=== PATIENT | female | born 1965 | race Caucasian/White ===

== ENCOUNTER 2017-03-10 12:58 | Inpatient (IN) ==
--- NOTE | 2017-03-09 17:35 | Discharge Summary ---
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 Qualifiers: Encounter type: subsequent encounter Qualified Code(s): T84.038D - Mechanical loosening of other internal prosthetic joint, subsequent encounter; Z96.619 - Presence of unspecified artificial shoulder joint; Z96.619 - Presence of unspecified artificial shoulder joint (2) Hypothyroidism Priority: Secondary Status: Chronic Qualifiers: Hypothyroidism type: unspecified Qualified Code(s): E03.9 - Hypothyroidism , unspecified (3) GERD (gastroesophageal reflux disease) Priority: Secondary Status: Chronic Qualifiers: Esophagitis presence: esophagitis presence not specified Qualified Code(s) : K21.9 - Gastro-esophageal reflux disease without esophagitis (4) Depression Priority: Secondary Status: Chronic Qualifiers: Depression Type: unspecified Qualified Code(s): F32.9 - Major depressive disorder, single episode, unspecified (5) HTN (hypertension) Priority: Secondary Status: Chronic Qualifiers: Hypertension type: unspecified Qualified Code(s): I10 - Essential (primary ) hypertension - Discharge Medications Home Medications: OxyCODONE Immed Rel [Roxicodone 5 MG] 5 - 10 mg PO Q6HR PRN #40 tablet 02/25/16 [Rx] Ascorbate Calcium [Vitamin C] 500 mg PO DAILY 02/26/16 [History] Aspirin 81 mg PO HS 02/26/16 [History] Citalopram Hydrobromide [Celexa] 40 mg PO HS 02/26/16 [History] Cranberry 500 mg PO DAILY 02/26/16 [History] Cyanocobalamin (Vitamin B-12) [Vitamin B-12] 1,000 mcg SL DAILY 02/26/16 [ History] Cyclobenzaprine HCl 5 mg PO TID PRN 02/26/16 [History] Esomeprazole Magnesium [Nexium] 40 mg PO DAILY 02/26/16 [History] Garlic [Odor Free Garlic] 100 mg PO DAILY 02/26/16 [History] Levothyroxine Sodium [Levo-T] 100 mcg PO HS 02/26/16 [History] Meloxicam [Mobic] 7.5 mg PO DAILY 02/26/16 [History] Multivitamin [Zoo Chews] 1 each PO DAILY 02/26/16 [History] [place]-3/Dha/Epa/Fish Oil [[place] 3 500 Softgel] 1 each PO DAILY 02/26/16 [History ] Vitamins A and D [Vitamin A and D] 1 each PO DAILY 02/26/16 [History] Zinc [Zinc Chelated] 50 mg PO DAILY 02/26/16 [History] OxyCODONE Immed Rel [Roxicodone 5 MG] 5 mg PO Q6HR PRN 7 Days #28 tablet [Rx] Calcium Carbonate [Calcium] 600 mg PO DAILY 03/10/17 [History] Lisinopril [Zestril] 5 mg PO DAILY 03/10/17 [History] Ubidecarenone [Co Q-10] 100 mg PO DAILY 03/10/17 [History] Allergies/Adverse Reactions: 3 Allergy/AdvReac Type Severity Reaction Status Date / Time cephalexin [From Keflex] Allergy SAMY PURCELL Verified 03/10/17 13:55 ING Primary care physician: PCP NONE - Patient Status Disposition: Home, Self-Care Condition: Good - Discharge Instructions Follow Up With: Yesica Olsen PAC [Physician Subacute Nurse] - 03/20/17 9:00 am Yves Perez MD [Partnered Physician] - 04/08/17 10:05 am Additional Instructions: Discharge Instructions: Total Shoulder Please call [facility] ([phone]), your Primary Care Physician, or report to the Emergency Room if you have any of the following symptoms: Nausea, vomiting, fever greater that 101.5, swelling, chest pain, shortness of breath, increased pain/redness/drainage/odor for your incision site, numbness/ tingling, or any other concerning symptoms. ACTIVITY: Always keep your arm in the sling. Do not raise your arm away from your body. Do not use your arm to help with getting in or out of bed. No weight bearing permitted. Only perform those exercises given to you by your therapist. MEDICATIONS: Upon discharge resume your home medications. Take all the medications as prescribed. Take a stool softener if taking narcotic pain medications. Stool softeners are only effective if you drink enough fluids. Drink 6-8 glass of water or fluids a day, unless this is not allowed for another health problem. Despite using stool softeners, if you haven't had a bowel movement in 3 days, please switch to a gentle laxative. Gentle laxatives are sold over the counter. You should have a bowel movement within 24 hours, if not call the office. You will be discharged from the hospital with a prescription for pain medication. You are encouraged to decrease the use of narcotic pain medication as tolerated. Should you require a refill, please call the office. [facility] prescribes narcotic pain medication for only 4-6 weeks after surgery. If you require pain medication beyond this time period, you may be referred to your Primary Care Physician or to the Pain Clinic for further evaluation. Plan ahead for refills on pain medication as many narcotics either need to be picked up at the office or mailed. It is best to call 48-72 hours in advance of needing a prescription refill so you don't run out of medication. To help control the post-operative pain, you may take NSAIDs (Aleve,Advil, Motrin, Ibuprofen, Naprosyn) or Tylenol as prescribed on the bottle in addition to the pain medication. WOUND CARE: Leave the dressing on for 7-10 days. You may change the dressing if it becomes saturated greater than 50%. Do not get the dressing wet at anytime. Wash your hands with antibacterial soap, rinse and dry prior to any wound care. If you have alisa the visiting nurse or rehab facility can remove the stapes 10-14 days after surgery and place steri-strips across the wound. Leave the steri-strips in place until they fall off on their own. You may let water from the shower run on top of the steri-strips. If you do not have a visiting nurse or rehab facility, you will need to return to the office at 10-14 days for the alisa to be removed. If you have itching or redness around the dressing call the office. FOLLOW-UP: Please follow up with your surgeon in the orthopedic clinic, as scheduled - Hospital Course Hospital course: Ms. 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 Qualifiers: Encounter type: subsequent encounter Qualified Code(s): T84.038D - Mechanical loosening of other internal prosthetic joint, subsequent encounter; Z96.619 - Presence of unspecified artificial shoulder joint; Z96.619 - Presence of unspecified artificial shoulder joint (5) Hypothyroidism Priority: Secondary Status: Chronic Qualifiers: Hypothyroidism type: unspecified Qualified Code(s): E03.9 - Hypothyroidism , unspecified (6) GERD (gastroesophageal reflux disease) Priority: Secondary Status: Chronic Qualifiers: Esophagitis presence: esophagitis presence not specified Qualified Code(s) : K21.9 - Gastro-esophageal reflux disease without esophagitis (7) Depression Priority: Secondary Status: Chronic Qualifiers: Depression Type: unspecified Qualified Code(s): F32.9 - Major depressive disorder, single episode, unspecified Primary care physician: PCP NONE - Patient Status Functional capacity at discharge: independent ambulation Overall status at discharge: patient is progressing back to baseline - Hospital Course Hospital course: Ms. Bear is a 51 year old female Status post revision right total shoulder patient discharged same day - Time Spent with Patient Total time spent providing and/or coordinating discharge services:
--- NOTE | 2017-03-10 13:14 | History & Physical Report ---
Date of Encounter: 03/10/17 Time of Encounter: 13:14 24 Hour HP Update - Instructions Instructions: If the History and Physical is less than 30 days old and was completed prior to A.M. admission and or procedure and has NOT been updated on calendar day of procedure please complete this update prior to performing procedure. - Update Patient reports changes in Medical Condition: No Changes in examination, assessment, or condition: No Changes in Medication: No Preop tests/diagnostics Reviewed: Yes Surgery Remains Indicated: Yes Consent for Planned Operative Procedure(s) Verified: Yes - Pre-Operative Checklist Preoperative Checklist Indicated: No Prophylactic Antibiotic Ordered: Yes Is VTE Prophylaxis Indicated?: Yes
[2017-03-10] MEDS ORDERED: Lidocaine -MPF 1% 2 ML VIAL ID ONE (13:20)
[2017-03-10] MEDS ORDERED: Clindamycin 900 MG/50 ML 900 MG/50 ML IV.SOLN IVPB ONE (13:20)
[2017-03-10] MEDS ORDERED: Ringers Solution, Lactated 1,000 ML IVC SCH ×2 (13:30→17:15)
--- NOTE | 2017-03-10 14:08 | Anesthesia Evaluation PreOp ---
Date of Encounter: 03/10/17 Time of Encounter: 14:00 - Past History Planned Operation: Revision Rt Shoulder Cardiac History: HTN, Hyperlipidemia Pulmonary History: Denies Any Significant HX WASH DRILLER History: Denies Any Significant HX Other Medical History: Thyroid Anesthesia History: No Prior Anesthetic Complications : No Alcohol Use: none Drug use: none Medications and Allergies OxyCODONE Immed Rel [Roxicodone 5 MG] 5 - 10 mg PO Q6HR PRN #40 tablet 02/25/16 [Rx] Ascorbate Calcium [Vitamin C] 500 mg PO DAILY 02/26/16 [History] Aspirin 81 mg PO HS 02/26/16 [History] Citalopram Hydrobromide [Celexa] 40 mg PO HS 02/26/16 [History] Cranberry 500 mg PO DAILY 02/26/16 [History] Cyanocobalamin (Vitamin B-12) [Vitamin B-12] 1,000 mcg SL DAILY 02/26/16 [ History] Cyclobenzaprine HCl 5 mg PO TID PRN 02/26/16 [History] Esomeprazole Magnesium [Nexium] 40 mg PO DAILY 02/26/16 [History] Garlic [Odor Free Garlic] 100 mg PO DAILY 02/26/16 [History] Levothyroxine Sodium [Levo-T] 100 mcg PO HS 02/26/16 [History] Meloxicam [Mobic] 7.5 mg PO DAILY 02/26/16 [History] Multivitamin [Zoo Chews] 1 each PO DAILY 02/26/16 [History] [place]-3/Dha/Epa/Fish Oil [[place] 3 500 Softgel] 1 each PO DAILY 02/26/16 [History ] Vitamins A and D [Vitamin A and D] 1 each PO DAILY 02/26/16 [History] Zinc [Zinc Chelated] 50 mg PO DAILY 02/26/16 [History] OxyCODONE Immed Rel [Roxicodone 5 MG] 5 mg PO Q6HR PRN 7 Days #28 tablet [Rx] Calcium Carbonate [Calcium] 600 mg PO DAILY 03/10/17 [History] Lisinopril [Zestril] 5 mg PO DAILY 03/10/17 [History] Ubidecarenone [Co Q-10] 100 mg PO DAILY 03/10/17 [History] 3 Allergy/AdvReac Type Severity Reaction Status Date / Time cephalexin [From Keflex] Allergy SAMY PURCELL Verified 03/10/17 13:55 ING - Meds/Allergy Pre-op Review Medications Reviewed: Yes Allergies Reviewed: Yes Beta Blockers on Current Med List: No Anesthesia Results - Labs Laboratory Tests 02/25/17 02/25/17 16:08 16:08 Hgb 13.1 Hct 40.2 Plt Count 309 Sodium 137 Potassium 4.1 BUN 15 Creatinine 0.75 - Imaging EKG: report reviewed (SR) Anesthesia Exam O2 Sat Height 1.68 m Height 1.68 m Height 1.68 m Weight 97.976 kg Weight 97.976 kg Weight 97.976 kg O2 Sat by Pulse Oximetry 96 O2 Sat by Pulse Oximetry 96 Vital Signs Temp Pulse Resp BP Pulse Ox 98.0 F 80 18 129/83 96 03/10/17 13:17 03/10/17 13:17 03/10/17 13:17 03/10/17 13:17 03/10/17 13:17 Height: 5'6 Weight: 216 lbs NPO (# of Hours): MN Pain Scale: 0 - HEENT Pupil (Motor): Pupils equal, EOMI Mallampati: III Teeth: Edentulous Oral Opening: Less than or equal to 3 - WASH DRILLER LOC: Oriented WASH DRILLER Motor: Normal RUE, Normal LUE, Normal RLE, Normal LLE, Normal Face WASH DRILLER Sensory: Normal: RUE, LUE, RLE, LLE, Face - Cardiac Rhythm: Regular Murmur: None JVD: No Carotid Bruit: No - Pulmonary Breath Sounds: bilateral Clear Respiratory Effort: Symmetrical Anesthesia Assess/Plan ASA Score: 2 Modified Hilaria Scale for Level of Consciousness: Cooperative, oriented, and tranquil Anesthetic Plan: General, Regional Monitoring Plan: Standard Monitors Recovery Plan: PACU (Discussed GA and RA, agrees to proceed)
[2017-03-10] MEDS ORDERED: ROPIVACAINE HCL/PF 0.5% 30 ML VIAL ONE (14:41)
[2017-03-10] MEDS ORDERED: Tetracaine/PF 20 MG/2 ML AMPUL ONE (14:42)
[2017-03-10] MEDS ORDERED: Ethanol\\Acetic Acid\\Na Ace\\Ben 1,000 ML IRRIG.SOLN IR ONE (14:56)
--- NOTE | 2017-03-10 15:01 | Anesthesia Procedures ---
Date of Encounter: 03/10/17 Time of Encounter: 14:00 Procedures: Anesthesia - Nerve Block Procedure Date: 03/10/17 Time: 14:50 Pre-op Diagnosis: Rt Shoulder Arthritis Surgical Procedure: Rt Total Shoulder Replacement Checklist: Correct Patient Identifier Correct side: Right Blood Thinner: No Monitor Applied: EKG, BP, Pulse Oximetry Supplemental Oxygen via Nasal Cannula (L/min): 2 Sedation: Versed (mg): 2 Sedation: Fentanyl (mcg): 50 Indication: Post Op Analgesia Pre-op Neuro Deficits: No Block Type: Supraclavicular Catheter placed: No Depth at skin (cm): 2 Sterile Technique: Yes Ultrasound used: Yes Anatomy identified: Yes Visual spread of Local: Yes Neuro Stimulation: No Blood on Needle Aspiration: No Smooth Injection of Local: Yes Prep: Chlorhexadine Needle: 22 x 50 mm Stimuplex Local: Tetracaine, Ropivacaine Volume (cc): 30 Number of Attempts: 1 Complications: None/effective block Vitals: Vital Signs/O2 Sat/Glucose, Most Current Temp Pulse Resp BP Pulse Ox 03/10/17 14:54 74 14 126/74 99 03/10/17 14:31 67 16 126/69 99 03/10/17 13:23 98.0 F 80 18 129/83 96 03/10/17 13:17 98.0 F 80 18 129/83 96
[2017-03-10] MEDS ORDERED: *HR* Propofol 200 MG/20 ML VIAL IVP ONE ×2 (15:32→16:12)
[2017-03-10] MEDS ORDERED: *HR* FentaNYL (PF) 100 MCG/2 ML VIAL ONE (15:32)
[2017-03-10] MEDS ORDERED: *HR* Midazolam HCl 2 MG/2 ML VIAL ONE (15:32)
[2017-03-10] MEDS ORDERED: Lidocaine -MPF 2% 2 ML VIAL ONE (15:32)
[2017-03-10] MEDS ORDERED: EPHEDrine 50 MG/ML VIAL ONE (15:32)
[2017-03-10] MEDS ORDERED: Ondansetron 4 MG/2 ML VIAL IVP PRN ×2 (15:38→17:15)
[2017-03-10] MEDS ORDERED: *HR* Labetalol 20 MG/4 ML SYRINGE IVP PRN (15:38)
[2017-03-10] MEDS ORDERED: *HR* HYDROmorphone (PF) 1 MG/ML SYRINGE IVP PRN ×2 (15:38→17:15)
[2017-03-10] MEDS ORDERED: Dexamethasone 4 MG/ML VIAL ONE (15:43)
--- NOTE | 2017-03-10 16:09 | Orthopedic Operative Note ---
Date of procedure: 03/10/17 Pre-op diagnosis: Aseptic loosening right total shoulder reverse replacement Post-op diagnosis: same Procedure: Procedure: Right Revision Total Shoulder replacement reverse Estimated blood loss: 200 cc Hardware: Arthrex metal and plastic replacement: Glenoid component: Medium, 2 4.5 screws, one 6.5 screw, 39+4 sphere, 6 stem, 9 spacer, 3 Mary Procedural Notes: Loose glenoid with fractured screws 2, loose humeral component Operative procedure: The patient was brought to the operating room and placed on the operating room table. The patient was placed in the modified beachchair position. All pressure points were padded appropriately. And the head was stabilized in the neutral position. The operative extremity was prepped and draped in the sterile surgical fashion. The patient received IV antibiotics prior to skin incision. A standard deltopectoral approach was made to the operative shoulder. Incision was made through the old incision, through the skin and subcutaneous tissue, hemo stasis was obtained with Bovie cautery. Using careful blunt dissection the deltopectoral interval was developed and the clavipectoral fascia was incised. An extensive debridement was performed, and the shoulder was dislocated. Using an osteotome to clear out the soft tissue, the humeral component was disassembled leaving the diaphyseal component. Anterior and posterior Bankart retractors were used to expose the glenoid, the glenoid component was removed without incident. First the glenosphere was disengaged, and the screws removed from the baseplate, and finally the baseplate was removed without significant bone loss. No attempt was made to remove the broken screws for fear of losing more bone. The glenoid guide was seated the centering hole was made the glenoid was reamed with the appropriate medium reamer. The glenoid baseplate was seated and secured and locked in place with the compression screws. This was placed over 2 mL of DBX bone stimulating protein placed in the central holes. 2 4.5 compression screws 1 25 millimeter 6.5 central screw The baseplate was irrigated and dried the 39+4 glenosphere was seated and secured. Attention was then turned to the humeral side. The diaphyseal component was removed from the humerus without incident. The humerus was reamed and broached up to a 6 size in 20 degrees of retroversion. Trial reduction found the shoulder to be relocatable. Trial components were removed, real implants were seated. Trial reduction found the shoulder to be stable with the 9 spacer and 3 poly- constrained. The trial implants were removed the real implants were seated and secured in the shoulder was reduced. The patient had excellent motion and excellent stability no shuck. The deep tissue was irrigated with pulse irrigation deltopectoral interval was closed by the PA, with #2 PDS suture over Gelfoam soaked in vancomycin. Superficially the subcutaneous tissue was closed with 0 PDS suture, the skin was closed with Dermabond. The patient placed sterile dressing, postoperative brace extubated and transferred to the recovery room in stable condition. Anesthesia: GETErika Surgeon: Yves Perez Board Lining Machine Operator: Yesica Olsen Condition: stable Disposition: PACU
--- NOTE | 2017-03-10 16:56 | Anesthesia Evaluation Post Op ---
Date of Encounter: 03/10/17 Time of Encounter: 16:56 - Vital Signs Vital Signs: Vital Signs - Last 8 Hours Temp Pulse Resp BP Pulse Ox 03/10/17 16:50 76 12 128/69 95 03/10/17 16:40 81 14 117/79 98 03/10/17 16:30 97.9 F 82 14 115/86 99 03/10/17 14:54 74 14 126/74 99 03/10/17 14:31 67 16 126/69 99 03/10/17 13:23 98.0 F 80 18 129/83 96 03/10/17 13:17 98.0 F 80 18 129/83 96 Intake and Output 03/10/17 03/10/17 03/10/17 07:59 15:59 23:59 Output Total 200 / 200 Balance -200 / -200 Output: Urine 0 / 0 Estimated Blood Loss 200 / 200 Other: Weight 97.976 kg Patient Weight 03/10/17 23:59 Weight 97.976 kg - Lungs Lungs: Clear Ascult./Percussion - Airway Airway: Non-obstructed - Cardiovascular Regular Rate, Baseline Rhythm - Mental Status Mental Status: Alert & Oriented, Answers Appropriately - Pain Pain Scale: 0 Pain Scale used: Numeric (1 - 10) - Nausea Vomiting Nausea Vomiting: Not Present - Hydration Hydration: Ice chips - Discharge PostOp Status: Transfer Patient to floor
[2017-03-10 16:59] LABS: Hematocrit 39.3 % (35.3-44.9); Hemoglobin 12.9 g/dL (11.5-15.4)
[2017-03-10] MEDS ORDERED: Clindamycin 900 MG/50 ML 900 MG/50 ML IV.SOLN IVPB SCH (17:15)
[2017-03-10] MEDS ORDERED: Temazepam 15 MG CAPSULE PO PRN (17:15)
[2017-03-10] MEDS ORDERED: MOM Conc 10 ML UD.LIQ PO PRN (17:15)
[2017-03-10] MEDS ORDERED: *HR* OxyCODONE Immed Rel 5 MG TABLET PO PRN ×2 (17:15)
[2017-03-10] MEDS ORDERED: Naloxone 0.4 MG/ML INJ IVP PRN (17:15)
[2017-03-10] MEDS ORDERED: Sennosides 8.6 MG TABLET PO PRN (17:15)
[2017-03-10] MEDS ORDERED: *HR* Enoxaparin 30 MG/0.3 ML SYRINGE SQ SCH ×2 (18:00)
[2017-03-10 18:29] VITALS: BP 108/75
[2017-03-10] MEDS ORDERED: Aspirin 81 MG TAB.CHEW PO SCH (21:00)
[2017-03-11] MEDS ORDERED: Multivit/Ca/Min/Fe/FA 1 TAB TABLET PO SCH (09:00)
[2017-03-11] MEDS ORDERED: DHA PO SCH (09:00)
[2017-03-11] MEDS ORDERED: [UNRECOGNIZED DRUG - REMARK] PO SCH (09:00)
[2017-03-11] MEDS ORDERED: (Ubidecarenone [Co Q-10] 100 MG) PO SCH (09:00)
[2017-03-11] MEDS ORDERED: OMEGA PO SCH (09:00)
[2017-03-11] MEDS ORDERED: EPA PO SCH (09:00)
[2017-03-11] MEDS ORDERED: (Zinc [Zinc Chelated] 50 MG) PO SCH (09:00)
[2017-03-11] MEDS ORDERED: Cyanocobalamin (B-12) 1,000 MCG TABLET PO SCH (09:00)
[2017-03-11] MEDS ORDERED: FISH OIL PO SCH (09:00)
[2017-03-11] MEDS ORDERED: Ascorbic Acid 500 MG TABLET PO SCH (09:00)
== END 2017-03-10 21:20 | disposition home or self-care (01) | DRG 315 ==
LOC: SAMDAY 12:58 → 3NENU 17:16
PROVIDERS: ADMIT Orthopaedic Surgery; ATTEND Orthopaedic Surgery